=== PATIENT | male | born 1960 | race Caucasian/White ===

== ENCOUNTER → 2016-11-16 | Outpatient (CLI) | payer OTHER ==
--- NOTE | 2016-11-18 10:36 | SLEEPCENT ---
DATE OF PROCEDURE: 11/16/2016 ORDERED BY: Idania Mullins Nocturnal polysomnography was performed for retitration of pressure therapy in this patient with obstructive sleep apnea syndrome. For testing, the patient was fit with a Respironics nasal comfort gel mask of medium size and 6 cm of water pressure were applied to the circuit and the lights were extinguished. 7 hours and 24 minutes of data were reviewed. There were 384 minutes of sleep identified. Sleep latency was mildly prolonged at 25 minutes. Rapid eye movement (REM) latency was prolonged at 115 minutes. Sleep architecture once established was fairly good. There were 3 REM periods appreciated. Overall sleep efficiency was 87%. Electrocardiogram (EKG) showed a sinus rhythm with an average heart rate of 60 beats per minute. Electroencephalogram (EEG) showed reasonably normal waveforms for awake and sleep. Snoring was noted prompting some increase in pressure therapy. There were some isolated hypopneic events. Best sleep was seen on a CPAP of 8. There were a few limb movements noted and limb movement arousal index was only 1.6. IMPRESSION: Obstructive sleep apnea syndrome (G47.33). RECOMMENDATION: Nightly use of pressure therapy at 8 cm of water.
== END ==
LOC: M SLEEP 20:17
PROVIDERS: ATTEND Nurse Practitioner Adult Health
DX: G47.33 Obstructive sleep apnea (adult) (pediatric) (principal)

== ENCOUNTER 2018-05-15 22:13 | Emergency (ER) | payer OTHER ==
[2018-05-15] MEDS: NS 1,000 ML IV (22:45)
[2018-05-15 22:53] LABS: BASO # 0.1 10^3/uL (0.0-0.2); BASO % 0.9 % (0.0-1.0); EOS # 0.2 10^3/uL (0.0-0.50); EOS % 2.7 % (0.0-3.0); HEMATOCRIT 47.4 % (42.0-52.0); HEMOGLOBIN 15.8 g/dl (13.5-17.5); IMMATURE GRANULOCYTE % 0.2 % (0-3.0); LYMPH # 3.1 10^3/uL (1.5-4.5); LYMPH % 35.1 % (24.0-44.0); MEAN CORPUSCULAR HEMOGLOBIN 29.8 pg (27.0-33.0); MEAN CORPUSCULAR HGB CONC 33.3 g/dl (32.0-36.5); MEAN CORPUSCULAR VOLUME 89.4 fl (80.0-96.0); MONO # 1.2 10^3/uL (0.0-0.8); MONO % 13.7 % (0.0-5.0); NEUTROPHILS # 4.1 10^3/uL (1.8-7.7); NEUTROPHILS % 47.4 % (36.0-66.0); PLATELET COUNT, AUTOMATED 173 10^3/uL (150-450); RED CELL DISTRIBUTION WIDTH 12.3 % (11.5-14.5); WHITE BLOOD COUNT 8.7 10^3/uL (4.0-10.0)
[2018-05-15] MEDS: MORPHINE 4 MG/ML 1ML VIAL/SYRINGE (J2270) IV (22:56)
[2018-05-15] MEDS: ONDANSETRON 4MG/2ML VIAL (J2405) IV (22:56)
[2018-05-15 23:17] LABS: ALBUMIN 3.9 GM/DL (3.2-5.2); ALBUMIN/GLOBULIN RATIO 1.11 (1.00-1.93); ALKALINE PHOSPHATASE 90 U/L (45-117); ALT/SGPT 33 U/L (12-78); ANION GAP 8 MEQ/L (8-16); AST/SGOT 24 U/L (7-37); BILIRUBIN,TOTAL 0.7 MG/DL (0.2-1.0); BLOOD UREA NITROGEN 21 MG/DL (7-18); CARBON DIOXIDE LEVEL 29 MEQ/L (21-32); CHLORIDE LEVEL 106 MEQ/L (98-107); CREATININE FOR GFR 1.46 MG/DL (0.70-1.30); GLOMERULAR FILTRATION RATE 52.4 (>49); GLUCOSE, FASTING 122 MG/DL (70-100); LIPASE 109 U/L (73-393); POTASSIUM SERUM 3.7 MEQ/L (3.5-5.1); SODIUM LEVEL 143 MEQ/L (136-145); TOTAL PROTEIN 7.4 GM/DL (6.4-8.2)
[2018-05-15] MEDS: KETOROLAC 30 MG/ML VIAL (J1885) IV (23:38)
[2018-05-16 00:02] LABS: KETONE, URINE AUTO RFX NEGATIVE (NEGATIVE); LEUKOCYTE ESTERASE UR AUTO RFX NEGATIVE (NEGATIVE); MUCUS, URINE RFX SMALL (NEGATIVE); NITRITE, URINE AUTO RFX NEGATIVE (NEGATIVE); RBC, URINE AUTO RFX 55 /HPF (0-3); SPECIFIC GRAVITY UR AUTO RFX 1.018 (1.002-1.035); SQUAM EPITHELIAL CELL UR AURFX 0 /HPF (0-6); WBC, URINE AUTO RFX 2 /HPF (0-3)
[2018-05-16] MEDS: OXYCODONE/APAP 5MG/325MG(BULK FOR ED) 1 TABLET PO (01:07)
== END 2018-05-16 01:25 | disposition home or self-care (01) ==
LOC: M ED 22:13
DX: N20.1 Calculus of ureter (principal); N13.9 Obstructive and reflux uropathy, unspecified; R11.0 Nausea; I25.2 Old myocardial infarction; Z95.1 Presence of aortocoronary bypass graft; Z87.442 Personal history of urinary calculi; Z79.899 Other long term (current) drug therapy; Z79.82 Long term (current) use of aspirin
CPT/HCPCS: J2270

== ENCOUNTER 2018-05-17 02:40 | Observation (INO) | payer OTHER ==
[2018-05-17] MEDS: KETOROLAC 30 MG/ML VIAL (J1885) IV ×3 (03:38→22:43)
[2018-05-17] MEDS: NS 1,000 ML IV (03:38)
[2018-05-17] MEDS: MORPHINE 4 MG/ML 1ML VIAL/SYRINGE (J2270) IV ×3 (03:39→08:54)
[2018-05-17] MEDS: ONDANSETRON 4MG/2ML VIAL (J2405) IV (03:39)
[2018-05-17 03:40] LABS: BASO # 0.1 10^3/uL (0.0-0.2); BASO % 0.7 % (0.0-1.0); EOS # 0.2 10^3/uL (0.0-0.50); EOS % 2.1 % (0.0-3.0); HEMOGLOBIN 15.4 g/dl (13.5-17.5); IMMATURE GRANULOCYTE % 0.3 % (0-3.0); LYMPH # 1.7 10^3/uL (1.5-4.5); LYMPH % 19.5 % (24.0-44.0); MEAN CORPUSCULAR HEMOGLOBIN 29.9 pg (27.0-33.0); MEAN CORPUSCULAR HGB CONC 33.5 g/dl (32.0-36.5); MEAN CORPUSCULAR VOLUME 89.3 fl (80.0-96.0); MONO % 11.7 % (0.0-5.0); NEUTROPHILS # 5.8 10^3/uL (1.8-7.7); NEUTROPHILS % 65.7 % (36.0-66.0); PLATELET COUNT, AUTOMATED 147 10^3/uL (150-450); RED BLOOD COUNT 5.15 10^6/uL (4.30-6.10); RED CELL DISTRIBUTION WIDTH 11.9 % (11.5-14.5); WHITE BLOOD COUNT 8.8 10^3/uL (4.0-10.0)
[2018-05-17 04:04] LABS: LACTIC ACID SEPSIS PROTOCOL 1.4 MMOL/L (0.4-2.0)
[2018-05-17 04:36] LABS: ALBUMIN 3.4 GM/DL (3.2-5.2); ALBUMIN/GLOBULIN RATIO 1.17 (1.00-1.93); ALKALINE PHOSPHATASE 79 U/L (45-117); ALT/SGPT 23 U/L (12-78); ANION GAP 7 MEQ/L (8-16); AST/SGOT 17 U/L (7-37); BILIRUBIN,DIRECT 0.2 MG/DL (0.0-0.2); BILIRUBIN,TOTAL 0.7 MG/DL (0.2-1.0); BLOOD UREA NITROGEN 22 MG/DL (7-18); CALCIUM LEVEL 8.3 MG/DL (8.8-10.2); CARBON DIOXIDE LEVEL 24 MEQ/L (21-32); CHLORIDE LEVEL 109 MEQ/L (98-107); GLUCOSE, FASTING 107 MG/DL (70-100); LIPASE 74 U/L (73-393); SODIUM LEVEL 140 MEQ/L (136-145); TOTAL PROTEIN 6.3 GM/DL (6.4-8.2)
[2018-05-17] MEDS ORDERED: MORPHINE 4 MG/ML 1ML VIAL/SYRINGE (J2270) IV (06:30)
[2018-05-17] MEDS ORDERED: ONDANSETRON 4MG/2ML VIAL (J2405) IV ×2 (06:30→21:15)
[2018-05-17] MEDS: D5W/0.45% SODIUM CHLORIDE 1,000 ML IV (06:56)
[2018-05-17 07:19] LABS: APPEARANCE, URINE CLEAR (CLEAR); BACTERIA, URINE AUTO NEGATIVE (NEGATIVE); BILIRUBIN, URINE AUTO NEGATIVE (NEGATIVE); BLOOD, URINE BLOOD 1+ (NEGATIVE); COLOR, URINE STRAW (YELLOW); GLUCOSE, URINE (UA) AUTO NEGATIVE (NEGATIVE); KETONE, URINE AUTO NEGATIVE (NEGATIVE); LEUKOCYTE ESTERASE, URINE AUTO NEGATIVE (NEGATIVE); NITRITE, URINE AUTO NEGATIVE (NEGATIVE); PROTEIN, URINE AUTO NEGATIVE (NEGATIVE); RBC, URINE AUTO 2 /HPF (0-3); SPECIFIC GRAVITY URINE AUTO 1.004 (1.002-1.035); SQUAMOUS EPITHELIAL CELL UR AU 0 /HPF (0-6); UROBILINOGEN, URINE AUTO 0.2 mg/dL (0.0-2.0); WBC, URINE AUTO 0 /HPF (0-3)
[2018-05-17] MEDS: VITAMIN D 1,000 INTERNATIONAL UNITS TABLET PO (09:00)
[2018-05-17] MEDS: MULTIVITAMINS/MINERALS THERAP 1 TAB PO (09:00)
[2018-05-17] MEDS: METOPROLOL TART 25 MG TABLET PO ×2 (09:55→22:44)
[2018-05-17] MEDS ORDERED: LIDOCAINE 2% 5ML JELLY UROJET As Ordered (19:09)
[2018-05-17] MEDS ORDERED: LIDOCAINE 2% INJ 100 MG/5 ML SDV (FOR ANES.) As Ordered (19:31)
[2018-05-17] MEDS ORDERED: dexameTHASONE 4 MG/ML 1ML VIAL (J1100) As Ordered (19:31)
[2018-05-17] MEDS ORDERED: PROPOFOL 200 MG/20 ML VIAL As Ordered (19:31)
[2018-05-17] MEDS ORDERED: ONDANSETRON 4MG/2ML VIAL (J2405) As Ordered (19:31)
[2018-05-17] MEDS ORDERED: MIDAZOLAM INJ 2 MG/2 ML VIAL (J2250) As Ordered (19:32)
[2018-05-17] MEDS ORDERED: fentaNYL 100 MCG/2 ML INJECTION (J3010) As Ordered (19:32)
[2018-05-17] MEDS: ceFAZolin 2 GM/D5W 50 ML IV BAG (J0690 PER 500MG) As Ordered (19:41)
[2018-05-17] MEDS: CONRAY-60 60% 50ML VIAL (Q9961) As Ordered (19:58)
[2018-05-17] MEDS ORDERED: LR 1,000 ML IV (21:15)
[2018-05-17] MEDS ORDERED: ALBUTEROL SULFATE 2.5 MG/0.5 ML INH NEB SOLN INH (21:15)
[2018-05-17] MEDS ORDERED: PERCOCET 5MG/325MG TAB PO (21:15)
[2018-05-17] MEDS ORDERED: fentaNYL 100 MCG/2 ML INJECTION (J3010) IV (21:15)
[2018-05-17] MEDS: NIACIN SR (NIASPAN) 500 MG TAB PO (22:43)
[2018-05-17] MEDS: DOCUSATE SODIUM 100 MG CAP PO (22:43)
[2018-05-17] MEDS: ATORVASTATIN 20 MG TAB PO (22:44)
[2018-05-18] MEDS: DOCUSATE SODIUM 100 MG CAP PO (08:29)
[2018-05-18] MEDS: MULTIVITAMINS/MINERALS THERAP 1 TAB PO (08:29)
[2018-05-18] MEDS: METOPROLOL TART 25 MG TABLET PO (08:29)
[2018-05-18] MEDS: VITAMIN D 1,000 INTERNATIONAL UNITS TABLET PO (08:29)
== END 2018-05-18 09:40 | disposition home or self-care (01) ==
LOC: M ED 02:40 → M ED INP 06:16 → M PED 08:20
DX: N13.0 Hydronephrosis with ureteropelvic junction obstruction (principal); I11.9 Hypertensive heart disease without heart failure; I25.10 Atherosclerotic heart disease of native coronary artery without angina pectoris; I25.2 Old myocardial infarction; G47.33 Obstructive sleep apnea (adult) (pediatric); E78.5 Hyperlipidemia, unspecified; Z79.899 Other long term (current) drug therapy; Z79.82 Long term (current) use of aspirin; Z87.442 Personal history of urinary calculi; Z95.1 Presence of aortocoronary bypass graft
CPT/HCPCS: 52332

== ENCOUNTER → 2018-05-22 | Outpatient (CLI) | payer OTHER ==
[2018-05-22 13:37] LABS: APPEARANCE, URINE CLOUDY (CLEAR); BACTERIA, URINE AUTO NEGATIVE (NEGATIVE); BILIRUBIN, URINE AUTO NEGATIVE (NEGATIVE); BLOOD, URINE BLOOD 3+ (NEGATIVE); COLOR, URINE AMBER (YELLOW); GLUCOSE, URINE (UA) AUTO NEGATIVE (NEGATIVE); KETONE, URINE AUTO NEGATIVE (NEGATIVE); LEUKOCYTE ESTERASE, URINE AUTO 2+ (NEGATIVE); MUCUS, URINE SMALL (NEGATIVE); NITRITE, URINE AUTO NEGATIVE (NEGATIVE); PROTEIN, URINE AUTO 2+ mg/dL (NEGATIVE); RBC, URINE AUTO TNTC /HPF (0-3); SQUAMOUS EPITHELIAL CELL UR AU 0 /HPF (0-6); UROBILINOGEN, URINE AUTO 0.2 mg/dL (0.0-2.0); WBC, URINE AUTO 32 /HPF (0-3); YEAST LIKE CELL URINE AUTO SMALL
== END ==
LOC: M SMT 08:08
DX: N13.2 Hydronephrosis with renal and ureteral calculous obstruction (principal)
CPT/HCPCS: 81001

== ENCOUNTER → 2018-06-14 | Outpatient (CLI) | payer OTHER ==
[2018-06-14 08:30] LABS: HEMATOCRIT 47.5 % (42.0-52.0); HEMOGLOBIN 15.9 g/dl (13.5-17.5); MEAN CORPUSCULAR HEMOGLOBIN 30.2 pg (27.0-33.0); MEAN CORPUSCULAR HGB CONC 33.5 g/dl (32.0-36.5); MEAN CORPUSCULAR VOLUME 90.1 fl (80.0-96.0); PLATELET COUNT, AUTOMATED 169 10^3/uL (150-450); RED BLOOD COUNT 5.27 10^6/uL (4.30-6.10); RED CELL DISTRIBUTION WIDTH 12.1 % (11.5-14.5); WHITE BLOOD COUNT 7.7 10^3/uL (4.0-10.0)
[2018-06-14 08:43] LABS: INR 1.04; PROTHROMBIN TIME 13.8 SECONDS (12.1-14.4)
[2018-06-14 08:44] LABS: PARTIAL THROMBOPLASTIN TIME 29.1 SECONDS (25.4-37.6)
[2018-06-14 09:38] LABS: ANION GAP 7 MEQ/L (8-16); BLOOD UREA NITROGEN 24 MG/DL (7-18); CALCIUM LEVEL 8.8 MG/DL (8.8-10.2); CARBON DIOXIDE LEVEL 28 MEQ/L (21-32); CHLORIDE LEVEL 108 MEQ/L (98-107); CREATININE FOR GFR 1.05 MG/DL (0.70-1.30); GLOMERULAR FILTRATION RATE > 60.0 (>49); GLUCOSE, FASTING 110 MG/DL (70-100); SODIUM LEVEL 143 MEQ/L (136-145)
[2018-06-14 17:17] LABS: ESTIMATED AVERAGE GLUCOSE 128 MG/DL (60-110); HEMOGLOBIN A1c 6.1 %
== END ==
LOC: M LAB 08:07
DX: Z01.818 Encounter for other preprocedural examination (principal); N20.0 Calculus of kidney; R73.09 Other abnormal glucose
CPT/HCPCS: 71046

== ENCOUNTER 2018-06-21 06:35 | Day surgery (SDC) | payer OTHER ==
[2018-06-21] MEDS ORDERED: LIDOCAINE 1% MDV 20ML VIAL SQ (07:00)
[2018-06-21] MEDS: LR 1,000 ML IV (07:45)
[2018-06-21] MEDS ORDERED: dexameTHASONE 4 MG/ML 1ML VIAL (J1100) As Ordered (07:56)
[2018-06-21] MEDS ORDERED: fentaNYL 100 MCG/2 ML INJECTION (J3010) As Ordered (07:56)
[2018-06-21] MEDS ORDERED: LIDOCAINE 2% INJ 100 MG/5 ML SDV (FOR ANES.) As Ordered (07:56)
[2018-06-21] MEDS ORDERED: ONDANSETRON 4MG/2ML VIAL (J2405) As Ordered (07:56)
[2018-06-21] MEDS ORDERED: PROPOFOL 200 MG/20 ML VIAL As Ordered (07:56)
[2018-06-21] MEDS ORDERED: MIDAZOLAM INJ 2 MG/2 ML VIAL (J2250) As Ordered (07:57)
== END 2018-06-21 10:40 | disposition home or self-care (01) ==
LOC: M SDC 06:35
DX: N20.0 Calculus of kidney (principal); R39.15 Urgency of urination; I25.10 Atherosclerotic heart disease of native coronary artery without angina pectoris; I25.2 Old myocardial infarction; I10 Essential (primary) hypertension; E78.5 Hyperlipidemia, unspecified; K21.9 Gastro-esophageal reflux disease without esophagitis; R06.83 Snoring; R73.01 Impaired fasting glucose; G47.33 Obstructive sleep apnea (adult) (pediatric); J30.89 Other allergic rhinitis; Z79.899 Other long term (current) drug therapy; Z79.82 Long term (current) use of aspirin; Z95.5 Presence of coronary angioplasty implant and graft; Z86.010 Personal history of colon polyps
CPT/HCPCS: 50590

== ENCOUNTER → 2018-07-20 | Outpatient (CLI) | payer OTHER ==
[~2018-07-20] MED LIST: ASPI81TAEC PO; ATOR40TA75; ATOR40TA75 PO; METO50TA7; METO50TA7 PO; NIAC1TAB5; NIAC1TAB5 PO; OXYB5TAB10 PO; PERC5TAB12 PO; VITA100066 PO; VITMTA PO
--- NOTE | 2018-07-20 15:20 | REP ---
KUB, ONE VIEW: HISTORY: Kidney stone. COMPARISON: 06/21/2018 A small amount of air is present in small and large intestine. There are no air fluid levels or dilated loops of intestine. There is no pneumoperitoneum. Calcifications are present in the right kidney consistent with nephrolithiasis. A right ureteral stent is present. IMPRESSION: Right nephrolithiasis. Electronically Signed by Crescencio Miranda MD 07/20/2018 03:20 P
== END ==
LOC: M SMT 14:08
PROVIDERS: ATTEND Urology
DX: N20.0 Calculus of kidney (principal)

== ENCOUNTER 2018-08-02 11:01 | Day surgery (SDC) | payer OTHER ==
[~2018-08-02] VITALS: Ht 177.8 cm; Wt 110.7 kg
[~2018-08-02 11:01] MED LIST changes: +CONRAY-60 60% 50ML VIAL (Q9961) As Ordered ONE; +LR 1,000 ML IV ONE
[2018-08-02] MEDS ORDERED: fentaNYL 100 MCG/2 ML INJECTION (J3010) As Ordered ONE (12:10)
[2018-08-02] MEDS ORDERED: MIDAZOLAM INJ 2 MG/2 ML VIAL (J2250) As Ordered ONE (12:10)
[2018-08-02] MEDS ORDERED: LIDOCAINE 2% INJ 100 MG/5 ML SDV (FOR ANES.) As Ordered ONE (12:10)
[2018-08-02] MEDS ORDERED: PROPOFOL 200 MG/20 ML VIAL As Ordered ONE (12:10)
[2018-08-02] MEDS ORDERED: ROCURONIUM BROMIDE 50 MG/5 ML VIAL As Ordered ONE (12:11)
[2018-08-02] MEDS ORDERED: dexameTHASONE 4 MG/ML 1ML VIAL (J1100) As Ordered ONE (12:11)
[2018-08-02] MEDS ORDERED: METOCLOPRAMIDE INJ 10MG/2ML VIAL (J2765) As Ordered ONE (12:11)
--- NOTE | 2018-08-02 14:41 | REP ---
Retrograde pyelogram: Three views: History: Kidney stone. 0.25 minutes of fluoroscopy time is reported. Findings: A sequence of three last image hold fluoroscopically obtained spot radiographs of the right abdomen document right ureteral cannulation and contrast injection as well as double pigtail stent placement. Electronically Signed by Clint Delgadillo MD 08/02/2018 03:46 P
[2018-08-02] MEDS ORDERED: ONDANSETRON 4MG/2ML VIAL (J2405) As Ordered ONE (14:45)
[2018-08-02] MEDS ORDERED: LR 1,000 ML IV SCH (15:00)
[2018-08-02] MEDS ORDERED: PERCOCET 5MG/325MG TAB PO PRN (15:00)
[2018-08-02] MEDS ORDERED: ONDANSETRON 4MG/2ML VIAL (J2405) IV PRN (15:00)
[2018-08-02] MEDS: PERCOCET 5MG/325MG TAB PO PRN ×2 (15:12→15:55)
--- NOTE | 2018-08-02 15:19 | RO ---
DATE OF PROCEDURE: 08/02/2018 PREPROCEDURE DIAGNOSIS: Right kidney stones. POSTPROCEDURE DIAGNOSIS: Right kidney stones. PROCEDURE: Cystoscopy, right ureteroscopy with laser lithotripsy and basket extraction of stones, right retrograde pyelogram with intraoperative interpretation of images, right ureteral stent exchange. SURGEON: Andrea Lira MD LOADING DOCK HAND: None. ANESTHESIA: General. OPERATIVE INDICATIONS: This is a 58-year-old male who had a right ureteral stent placed about 2 months ago for an obstructing stone, and then underwent a right extracorporal shock wave lithotripsy, and it did not appear that he passed the majority of his stones. Therefore, he was brought to the operating room today for the above-listed procedure. DESCRIPTION OF PROCEDURE: The patient was brought to the operating room and general anesthesia induced. Prophylactic antibiotics were infused. He was then placed in dorsal lithotomy position, and prepped and draped in the usual sterile fashion. A rigid cystoscope was inserted into the urethral meatus and advanced into the bladder. Once inside the bladder, the previously placed stent was seen and grasped, and withdrawn until the distal end was seen protruding from the urethral meatus. I then advanced a wire up the right collecting system and withdrew the stent completely. I then advanced a ureteral access sheath over the wire up the right collecting system and secured the wire to the drape to serve as a safety wire. I then went up the ureteral access sheath with a flexible ureteroscope, and within the proximal ureter, an approximately 4 mm stone was seen. The stone was withdrawn with a basket. I then examined the kidney thoroughly, and there were approximately two to three additional moderate-sized stones inside the kidney. These stones were fragmented into smaller pieces using a 200 micron laser fiber. Next, all of the stone fragments were removed using a basket. Once I was satisfied all stones fragments were removed, a retrograde pyelogram was performed. It was notable for moderate right hydronephrosis, with no extravasation. I then withdrew the ureteroscope as well as the access sheath. No additional stones were seen within the ureter. I then utilized the previously placed wire to advance a #6-Italian x 22-32 cm JJ ureteral stent up the right collecting system. The wire was then removed and there were adequate curls to the stent in the right renal pelvis and the bladder. The bladder was emptied of all fluids and this marked conclusion of the procedure. The patient was then taken out of dorsal lithotomy position, awakened from anesthesia, transported to recovery room in stable condition. ESTIMATED BLOOD LOSS: 5 mL. COMPLICATIONS: None. SPECIMENS: Kidney stones. PLAN: The patient will followup in the clinic in a few weeks for stent removal. LUKE
[2018-08-02] MEDS: fentaNYL 100 MCG/2 ML INJECTION (J3010) IV PRN ×4 (15:28→15:55)
[2018-08-02 17:15] VITALS: BP 114/71
== END 2018-08-02 17:40 | disposition home or self-care (01) ==
LOC: M SDC 11:01
PROVIDERS: ATTEND Urology
DX: N20.0 Calculus of kidney (principal); I25.10 Atherosclerotic heart disease of native coronary artery without angina pectoris; I25.2 Old myocardial infarction; I10 Essential (primary) hypertension; G47.30 Sleep apnea, unspecified; E78.5 Hyperlipidemia, unspecified; K21.9 Gastro-esophageal reflux disease without esophagitis; Z79.82 Long term (current) use of aspirin; Z79.899 Other long term (current) drug therapy
CPT/HCPCS: 52356; 74420; 82360; 88300; C1769; C1894; C2617; J0690; J1100; J2250; J2405; J2765; J3010; Q9961

== ENCOUNTER 2018-09-25 01:21 | Emergency (ER) | payer OTHER ==
[~2018-09-25] VITALS: Ht 180.3 cm; Wt 111.4 kg
[~2018-09-25 01:21] MED LIST changes: -CONRAY-60 60% 50ML VIAL (Q9961) As Ordered ONE; -LR 1,000 ML IV ONE
[2018-09-25] MEDS ORDERED: KETOROLAC 30 MG/ML VIAL (J1885) As Ordered ONE (01:42)
[2018-09-25] MEDS ORDERED: KETOROLAC 30 MG/ML VIAL (J1885) IV ONE (02:00)
[2018-09-25 02:08] LABS: BASO # 0.1 10^3/uL (0.0-0.2); BASO % 1.1 % (0.0-1.0); EOS # 0.2 10^3/uL (0.0-0.50); EOS % 2.9 % (0.0-3.0); HEMATOCRIT 47.4 % (42.0-52.0); HEMOGLOBIN 15.8 g/dl (13.5-17.5); LYMPH # 2.8 10^3/uL (1.5-4.5); LYMPH % 33.4 % (24.0-44.0); MEAN CORPUSCULAR HEMOGLOBIN 29.5 pg (27.0-33.0); MEAN CORPUSCULAR HGB CONC 33.3 g/dl (32.0-36.5); MEAN CORPUSCULAR VOLUME 88.4 fl (80.0-96.0); MONO % 12.5 % (0.0-5.0); NEUTROPHILS # 4.1 10^3/uL (1.8-7.7); NEUTROPHILS % 49.7 % (36.0-66.0); PLATELET COUNT, AUTOMATED 179 10^3/uL (150-450); RED BLOOD COUNT 5.36 10^6/uL (4.30-6.10); WHITE BLOOD COUNT 8.3 10^3/uL (4.0-10.0)
[2018-09-25 02:44] LABS: ALT/SGPT 36 U/L (12-78); BILIRUBIN,TOTAL 0.4 MG/DL (0.2-1.0); BLOOD UREA NITROGEN 23 MG/DL (7-18); CARBON DIOXIDE LEVEL 26 MEQ/L (21-32); CHLORIDE LEVEL 106 MEQ/L (98-107); CREATININE FOR GFR 1.23 MG/DL (0.70-1.30); GLOMERULAR FILTRATION RATE > 60.0 (>49); GLUCOSE, FASTING 142 MG/DL (70-100); POTASSIUM SERUM 3.5 MEQ/L (3.5-5.1); SODIUM LEVEL 142 MEQ/L (136-145); TOTAL PROTEIN 7.3 GM/DL (6.4-8.2)
[2018-09-25] MEDS ORDERED: MORPHINE 4 MG/ML 1ML VIAL/SYRINGE (J2270) As Ordered ONE (02:57)
[2018-09-25] MEDS ORDERED: ONDANSETRON 4MG/2ML VIAL (J2405) As Ordered ONE (02:57)
[2018-09-25] MEDS ORDERED: ONDANSETRON 4MG/2ML VIAL (J2405) IV ONE (03:15)
[2018-09-25] MEDS ORDERED: MORPHINE 4 MG/ML 1ML VIAL/SYRINGE (J2270) IV ONE ×2 (03:15→05:45)
--- NOTE | 2018-09-25 04:05 | REPVR ---
EXAM: CT Abdomen and Pelvis Without Contrast EXAM DATE/TIME: 09/25/2018 2:06 AM CLINICAL HISTORY: 58 years old, male; Pain; Abdominal pain; Flank; Left; Additional info: Left flank pain TECHNIQUE: Imaging protocol: Axial computed tomography images of the abdomen and pelvis without contrast. Coronal and sagittal reformatted images were created and reviewed. Radiation optimization: All CT scans at this facility use at least one of these dose optimization techniques: automated exposure control; mA and/or kV adjustment per patient size (includes targeted exams where dose is matched to clinical indication); or iterative reconstruction. COMPARISON: CT ABD PELVIS W/O CONTRAST 05/17/2018 4:01 AM FINDINGS: Lower thorax: The visualized portions of the lung bases are normal. ABDOMEN: Liver: There are no focal liver lesions present. Gallbladder and bile ducts: The gallbladder is normal with no stones or biliary ductal dilation. Pancreas: The pancreas is normal with no ductal dilation. Spleen: The spleen is normal. Adrenals: The adrenal glands are normal. Kidneys and ureters: There is mild left kidney hydronephrosis. There is a 3 x 4 mm stone in the distal left ureter, just proximal to the UVJ. There is mild left sided perinephric and periureteral stranding. The right ureter appears normal with no stones or hydronephrosis. Stones previously seen in the kidneys bilaterally are no longer identified. Stomach and bowel: Moderate diverticulosis is present in the sigmoid and descending colon. There is no dilation or thickening of the colon. The small bowel appears unremarkable. Appendix: There has been an appendectomy. PELVIS: Bladder: The bladder is mostly collapsed. No bladder stones are identified. Reproductive: The prostate gland and seminal vesicles are normal. ABDOMEN and PELVIS: Intraperitoneal space: There is no free intraperitoneal air. Bones/joints: Mild degenerative endplate changes are noted in the visualized spine. Soft tissues: Unremarkable. Vasculature: The aorta demonstrates mild atherosclerotic calcification. Lymph nodes: No lymphadenopathy is seen. IMPRESSION: 3 x 4 mm obstructing distal left ureter stone with associated mild left-sided hydronephrosis and mild left perinephric and periureteral stranding. Electronically signed by: Luisa Padilla On 09/25/2018 04:04:48 AM
[2018-09-25] MEDS ORDERED: PERC5TAB12 PO (05:06)
[2018-09-25] MEDS ORDERED: FLOM0.4C39 PO (05:06)
[2018-09-25] MEDS ORDERED: CIPR-249 PO (05:06)
[2018-09-25] MEDS ORDERED: TAMSULOSIN 0.4 MG CAP PO ONE (05:15)
[2018-09-25] MEDS ORDERED: OXYCODONE/APAP 5MG/325MG(BULK FOR ED) 1 TABLET PO ONE (05:15)
[2018-09-25 05:52] VITALS: BP 115/73
== END 2018-09-25 05:54 | disposition home or self-care (01) ==
LOC: M ED 01:21
DX: N20.1 Calculus of ureter (principal)
CPT/HCPCS: 74176; 80053; 81001; 85025; 96374; 96375; 96376; 99284; J1885; J2270; J2405

== ENCOUNTER 2021-02-03 19:56 | Emergency (ER) | payer OTHER ==
[~2021-02-03] VITALS: Ht 180.3 cm; Wt 114.1 kg
[~2021-02-03 19:56] MED LIST changes: +ASPI-569 PO; -ASPI81TAEC PO; +CIPR-249 PO; +FLOM0.4C39 PO
[2021-02-03] MEDS ORDERED: BRIL90TA PO (20:11)
[2021-02-03] MEDS ORDERED: ACETAMINOPHEN TAB 650MG DOSE (2X325MG) PO ONE (20:25)
[2021-02-03 21:31] LABS: BASO # 0.1 10^3/uL (0.0-0.2); BASO % 1.2 % (0.0-1.0); EOS % 0.3 % (0.0-3.0); HEMATOCRIT 48.5 % (42.0-52.0); LYMPH % 16.4 % (24.0-44.0); MEAN CORPUSCULAR HEMOGLOBIN 29.7 pg (27.0-33.0); MEAN CORPUSCULAR VOLUME 90.1 fl (80.0-96.0); MONO # 0.7 10^3/uL (0.0-0.8); MONO % 12.2 % (2.0-8.0); NEUTROPHILS # 4.1 10^3/uL (1.5-8.5); NEUTROPHILS % 69.4 % (36.0-66.0); PLATELET COUNT, AUTOMATED 144 10^3/uL (150-450); RED BLOOD COUNT 5.38 10^6/uL (4.30-6.10); WHITE BLOOD COUNT 5.9 10^3/uL (4.0-10.0)
--- NOTE | 2021-02-03 21:36 | REPVR ---
PROCEDURE INFORMATION: Exam: XR Chest Exam date and time: 02/03/2021 8:21 PM Age: 61 years old Clinical indication: Other: Dyspnea; Additional info: Dyspnea/cough TECHNIQUE: Imaging protocol: XR of the chest. Views: 1 view. COMPARISON: CR Chest, 2 view PA, Lat 06/14/2018 8:32 AM FINDINGS: Lungs: Unremarkable. No consolidation. Pleural spaces: Unremarkable. No pleural effusion. No pneumothorax. Heart/Mediastinum: Status post CABG. Bones/joints: Status post sternotomy. IMPRESSION: No acute findings. Electronically signed by: Jero Meredith On 02/03/2021 21:35:59 PM
[2021-02-03 22:13] LABS: ALBUMIN 3.8 GM/DL (3.2-5.2); ALT/SGPT 72 U/L (12-78); BILIRUBIN,DIRECT 0.3 MG/DL (0.0-0.2); BLOOD UREA NITROGEN 21 MG/DL (7-18); CALCIUM LEVEL 8.8 MG/DL (8.8-10.2); CARBON DIOXIDE LEVEL 26 MEQ/L (21-32); CHLORIDE LEVEL 106 MEQ/L (98-107); CK-MB VALUE MASS < 1.0 NG/ML (<3.6); CPK CREATINE PHOSPHOKINASE 61 U/L (39-308); CREATININE FOR GFR 1.24 MG/DL (0.70-1.30); GLOMERULAR FILTRATION RATE > 60.0 (>49); GLUCOSE, FASTING 111 MG/DL (70-100); MB/CK RELATIVE INDEX 1.64 (< OR =4); NT-PRO BNP 91 PG/ML (<125); SODIUM LEVEL 141 MEQ/L (136-145); THYROID STIMULATING HORMONE 0.599 uIU/ML (0.358-3.740); TOTAL PROTEIN 7.6 GM/DL (6.4-8.2); TROPONIN I < 0.02 NG/ML (< 0.10)
[2021-02-04] MEDS ORDERED: ISOVUE-370 76% 100ML VIAL As Ordered ONE (00:04)
[2021-02-04 00:13] LABS: CK-MB VALUE MASS < 1.0 NG/ML (<3.6); CPK CREATINE PHOSPHOKINASE 62 U/L (39-308); MB/CK RELATIVE INDEX 1.61 (< OR =4); TROPONIN I < 0.02 NG/ML (< 0.10)
[2021-02-04] MEDS ORDERED: ACETAMINOPHEN TAB 650MG DOSE (2X325MG) PO ONE (00:45)
--- NOTE | 2021-02-04 01:43 | REPVR ---
PROCEDURE INFORMATION: Exam: CTA Chest With Contrast Exam date and time: 02/03/2021 11:14 PM Age: 61 years old Clinical indication: Shortness of breath and other: Chills; Additional info: Chest pain/ chills TECHNIQUE: Imaging protocol: Computed tomographic angiography of the chest with contrast. 3D rendering (Not supervised by radiologist): MIP and/or 3D reconstructed images were created by the technologist. Radiation optimization: All CT scans at this facility use at least one of these dose optimization techniques: automated exposure control; mA and/or kV adjustment per patient size (includes targeted exams where dose is matched to clinical indication); or iterative reconstruction. Contrast material: ISO; Contrast volume: 75 ml; Contrast route: INTRAVENOUS (IV); COMPARISON: CR PORTABLE CHEST X-RAY 02/03/2021 8:24 PM FINDINGS: Pulmonary arteries: Peripheral pulmonary artery evaluation limited by cardiac and respiratory motion artifact. Central pulmonary arteries show no intraluminal defect suggestive of clot. Aorta: No thoracic aortic aneurysm or dissection. Great vessels off aortic arch: Atherosclerotic calcifications in the coronary vessels. Lungs: No suspicious lung mass or air space process. No central endobronchial lesion. Pleural spaces: No pleural effusion or pneumothorax. Heart: No overt cardiac enlargement or abnormal volume of pericardial fluid. Lymph nodes: No enlarged mediastinal lymph nodes. Bones/joints: Bony structures show no acute fracture or destructive process. Soft tissues: Unremarkable. IMPRESSION: 1. Significantly limited study secondary to gross patient motion. The central most pulmonary arteries show no intraluminal filling defect. Segmental vessels cannot be evaluated because of the degree of motion. 2. No evidence of aortic dissection, pneumonia or other concerning intrathoracic process 3. No evidence of acute pulmonary embolus. 4. No other acute or concerning focal intrathoracic abnormality. Electronically signed by: Alexis Napier On 02/04/2021 01:42:44 AM
[2021-02-04] MEDS ORDERED: cefTRIAXone SOD 2 GM in D5W MINI-BAG PLUS 50 ML IV ONE (02:45)
[2021-02-04] MEDS ORDERED: AUGM875T28 PO (02:46)
[2021-02-04 03:30] VITALS: BP 111/59
--- NOTE | 2021-02-04 07:31 | ECGEPIP ---
[facility] - ED Test Date: 2021-02-03 Pat Name: CAROL CALI Department: Room: - Gender: Male [employer] Work[employer]: ALAN : 1960 Requested By: FUENTES Manuel Order Number: [id number] Reading MD: Brandon Booth Measurements Intervals [place] Rate: 82 P: 47 ME: 166 QRS: -29 QRSD: 94 T: 87 QT: 346 QTc: 404 Interpretive Statements Normal sinus rhythm POOR R WAVE PROGRESSION NONSPECIFIC T WAVE ABNORMALITY(S) SIMILAR TO 05/17/18 Electronically Signed on 02-04-2021 7:31:07 EDT by Brandon Booth
--- NOTE | 2021-02-04 07:36 | ECGEPIP ---
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
== END 2021-02-04 03:53 | disposition home or self-care (01) ==
LOC: M ED 19:56
DX: J06.9 Acute upper respiratory infection, unspecified (principal); J32.9 Chronic sinusitis, unspecified; E78.00 Pure hypercholesterolemia, unspecified; I25.10 Atherosclerotic heart disease of native coronary artery without angina pectoris; G47.33 Obstructive sleep apnea (adult) (pediatric); Z87.442 Personal history of urinary calculi; Z95.1 Presence of aortocoronary bypass graft; Z95.5 Presence of coronary angioplasty implant and graft; Z79.899 Other long term (current) drug therapy; Z79.82 Long term (current) use of aspirin
CPT/HCPCS: 71045; 71275; 80048; 80076; 81001; 82550; 82553; 83605; 83880; 84145; 84443; 84484; 85025; 87040; 87798; 93005; 93041; 94760; 96365; 99285; J0696; Q9967

== ENCOUNTER 2022-03-11 12:23 | Emergency (ER) | payer OTHER ==
[~2022-03-11] VITALS: Ht 180.3 cm; Wt 113.6 kg
[~2022-03-11 12:23] MED LIST changes: +AUGM875T28 PO; +BRIL90TA PO
[2022-03-11 16:27] VITALS: BP 142/77
== END 2022-03-11 16:59 | disposition home or self-care (01) ==
LOC: M ED 12:23
DX: S99.911A Unspecified injury of right ankle, initial encounter (principal); X58.XXXA Exposure to other specified factors, initial encounter; Y92.89 Other specified places as the place of occurrence of the external cause; I10 Essential (primary) hypertension; I25.2 Old myocardial infarction; Z95.1 Presence of aortocoronary bypass graft; Z95.5 Presence of coronary angioplasty implant and graft; Z79.899 Other long term (current) drug therapy; Z79.82 Long term (current) use of aspirin

== ENCOUNTER → 2022-09-13 | Outpatient (CLI) | payer OTHER ==
[2022-09-13 10:53] LABS: CHOLESTEROL RISK RATIO 3.21 (<5); HDL CHOLESTEROL 39.5 MG/DL (>40); NON-HDL-C 87.5 MG/DL
[2022-09-13 12:43] LABS: LDL CHOLESTEROL 67.5 MG/DL (<100)
== END ==
LOC: M LAB 09:34
PROVIDERS: ATTEND Internal Medicine Cardiovascular Disease
DX: E78.00 Pure hypercholesterolemia, unspecified (principal)